=== PATIENT | female | born 1995 | race Caucasian/White ===

== ENCOUNTER 2020-06-02 06:56 | Outpatient (CLI) | payer OTHER ==
[~2020-06-02] VITALS: Ht 177.8 cm; Wt 96.3 kg
[2020-06-02 07:42] VITALS: BP 115/71
[2020-06-02] MEDS ORDERED: PREN1TAB60 PO (08:00)
== END 2020-06-02 08:40 | disposition home or self-care (01) ==
LOC: LDOP 06:56
PROVIDERS: ATTEND Student in an Organized Health Care Education/Training Program
DX: O42.913 Preterm premature rupture of membranes, unspecified as to length of time between rupture and onset of labor, third trimester (principal); Z3A.36 36 weeks gestation of pregnancy
CPT/HCPCS: 59025; 84112

== ENCOUNTER 2020-06-19 06:09 | Inpatient (IN) | payer OTHER ==
[~2020-06-19] VITALS: Ht 177.8 cm; Wt 100.0 kg
[~2020-06-19 06:09] MED LIST: PREN1TAB60 PO
[2020-06-19] MEDS ORDERED: D5%-LACTATED RINGERS 1,000 ML IV SCH (06:11)
[2020-06-19] MEDS ORDERED: OXYTOCIN 30U/ 0.9% NaCL 500ML 500 ML IV PRN (06:11)
[2020-06-19] MEDS ORDERED: OXYTOCIN 30U/ 0.9% NaCL 500ML 500 ML IV ONE (06:11)
[2020-06-19] MEDS ORDERED: NEWBORN KIT ONE (06:20)
[2020-06-19] MEDS ORDERED: FENTANYL PF 100 MCG/2ML IVPush PRN (06:30)
[2020-06-19] MEDS ORDERED: TERBUTALINE 1 MG/ML, 1ML SQ PRN (06:30)
[2020-06-19] MEDS ORDERED: MISOPROSTOL 25 MCG TABLET VG PRN (06:30)
[2020-06-19] MEDS ORDERED: PENICILLIN GK 5,000,000 UNITS in DEXTROSE 5% 100 ML IVPB ONE (06:30)
[2020-06-19] MEDS ORDERED: TERBUTALINE 1 MG/ML, 1ML IVPush PRN (06:30)
[2020-06-19] MEDS: LACTATED RINGERS 1,000 ML IV SCH ×5 (06:30→21:20)
[2020-06-19] MEDS ORDERED: ONDANSETRON 2MG/ML, 2ML IVPush PRN ×2 (06:30→20:00)
[2020-06-19] MEDS ORDERED: FENTANYL PF 100 MCG/2ML IV PRN ×2 (06:30→20:00)
[2020-06-19] MEDS ORDERED: CALCIUM CARBONATE 500 MG TAB.CHEW PO PRN (06:30)
[2020-06-19 06:44] LABS: BASOPHILS # (AUTO) 0.02 x10^3/uL (0-0.1); BASOPHILS % (AUTO) 0 % (0-1); EOSINOPHILS # (AUTO) 0.19 x10^3/uL (0-0.4); EOSINOPHILS % (AUTO) 2 % (1-7); LYMPHOCYTES % (AUTO) 17 % (22-44); MD NO; MEAN CORPUSCULAR HEMOGLOBIN 29.1 pg (27.0-34.8); MEAN CORPUSCULAR HGB CONC 32.8 g/dL (32.4-35.8); MEAN CORPUSCULAR VOLUME 88.7 fL (80-100); MEAN PLATELET VOLUME 10.2 fL (7.4-10.4); MONOCYTES # (AUTO) 0.64 x10^3/uL (0.2-0.8); MONOCYTES % (AUTO) 7 % (2-9); NEUTROPHILS # (AUTO) 6.32 x10^3/uL (1.8-6.8); NEUTROPHILS % (AUTO) 73 % (42-75); PLATELET COUNT 234 x10^3/uL (130-400); RED BLOOD COUNT 4.38 x10^6/uL (3.82-5.3); RED CELL DISTRIBUTION WIDTH 13.7 % (9.6-15.2)
[2020-06-19] MEDS ORDERED: LIDOCAINE 1%, 20ML ONE (06:45)
[2020-06-19] MEDS ORDERED: MISOPROSTOL 200 MCG TABLET ONE (06:46)
[2020-06-19] MEDS ORDERED: OXYTOCIN 30U/ 0.9% NaCL 500ML 500 ML ONE (06:46)
[2020-06-19] MEDS ORDERED: BUPR300T49 PO (07:13)
[2020-06-19] MEDS: PENICILLIN GK 2,500,000 UNITS in DEXTROSE 5% 100 ML IVPB SCH ×3 (11:33→19:45)
[2020-06-19] MEDS ORDERED: FENTANYL PF 100 MCG/2ML ONE ×3 (13:16→19:59)
[2020-06-19] MEDS ORDERED: FENTANYL/BUPIV./NS/PF 250 ML EPIDCONT SCH (14:09)
[2020-06-19] MEDS ORDERED: LACTATED RINGERS 1,000 ML IV SCH (14:09)
[2020-06-19] MEDS ORDERED: BUPIVACAINE 0.25% ONE (14:11)
[2020-06-19] MEDS ORDERED: FENTANYL/BUPIV./NS/PF 250 ML EPIDCONT ONE (14:11)
[2020-06-19] MEDS ORDERED: NALOXONE 0.4 MG/ML, 1ML IVPush PRN (14:30)
[2020-06-19] MEDS ORDERED: LACTATED RINGERS 1,000 ML IVBOLUS PRN (14:30)
[2020-06-19] MEDS ORDERED: EPHEDRINE 50 MG/ML, 1ML IVPush PRN ×2 (14:30→20:00)
[2020-06-19] MEDS ORDERED: METOCLOPRAMIDE 5 MG/ML, 2ML ONE (19:53)
[2020-06-19] MEDS ORDERED: DEXAMETHASONE 4 MG/ML, 1ML ONE (19:59)
[2020-06-19] MEDS ORDERED: ONDANSETRON 2MG/ML, 2ML ONE (19:59)
[2020-06-19] MEDS ORDERED: EPHEDRINE 50 MG/ML, 1ML ONE (19:59)
[2020-06-19] MEDS ORDERED: PROPOFOL 10 MG/ML, 20ML ONE (19:59)
[2020-06-19] MEDS ORDERED: CEFAZOLIN 1,000 MG ONE (19:59)
[2020-06-19] MEDS ORDERED: KETOROLAC 30 MG/1 ML ONE (19:59)
[2020-06-19] MEDS ORDERED: PHENYLEPHRINE 10 MG/ML ONE (19:59)
[2020-06-19] MEDS ORDERED: SUCCINYLCHOLINE 20 MG/ML, 10ML ONE (19:59)
[2020-06-19] MEDS ORDERED: OXYTOCIN 10 UNITS/ML, 1ML ONE (19:59)
[2020-06-19] MEDS ORDERED: HYDROmorphone 2 MG/ML, 1ML IVPush PRN (20:00)
[2020-06-19] MEDS ORDERED: hydrALAzine 20 MG/ML, 1ML IV PRN (20:00)
[2020-06-19] MEDS ORDERED: MEPERIDINE/PF 25MG/0.5ML IVPush PRN (20:00)
[2020-06-19] MEDS ORDERED: SODIUM CITRATE/CITRIC ACID 30 ML UDC PO ONE (20:00)
[2020-06-19] MEDS ORDERED: PROMETHAZINE 25 MG/ML, 1ML IV PRN (20:00)
[2020-06-19] MEDS ORDERED: ALBUTEROL/IPRATROPIUM 2.5MG/0.5MG, 3 ML NPPB PRN (20:00)
[2020-06-19] MEDS ORDERED: HYDROcodone/APAP 7.5-325MG/15ML UDC PO PRN (20:00)
[2020-06-19] MEDS ORDERED: LABETALOL 5MG/ML, 20ML IV PRN (20:00)
[2020-06-19] MEDS ORDERED: MIDAZOLAM 1 MG/ML, 2ML IV PRN (20:00)
[2020-06-19] MEDS ORDERED: OXYcodone 5 MG/5 ML ORAL.SOL UDC PO PRN (20:00)
[2020-06-19] MEDS ORDERED: morphine SULFATE/PF 0.5 MG/ML, 10ML ONE (20:43)
[2020-06-19] MEDS: OXYTOCIN 30U/ 0.9% NaCL 500ML 500 ML IV SCH (21:20)
[2020-06-19] MEDS ORDERED: METHYLERGONOVINE 0.2 MG/ML IM PRN (21:30)
[2020-06-19] MEDS ORDERED: ACETAMINOPHEN 325 MG TABLET PO PRN (21:30)
[2020-06-19] MEDS ORDERED: OXYcodone/APAP 5/325MG TABLET PO PRN (21:30)
[2020-06-19] MEDS ORDERED: CARBOPROST TROMETHAMINE 250 MCG/ML, 1ML IM PRN (21:30)
[2020-06-19] MEDS ORDERED: ONDANSETRON 2MG/ML, 2ML IV PRN (21:30)
[2020-06-19] MEDS ORDERED: METOCLOPRAMIDE 5 MG/ML, 2ML IV PRN (21:30)
[2020-06-19] MEDS ORDERED: MISOPROSTOL 200 MCG TABLET PO PRN (21:30)
[2020-06-19 23:35] VITALS: BP 123/77
[2020-06-20] MEDS ORDERED: OXYcodone/APAP 5/325MG TABLET PO PRN ×2 (01:00)
[2020-06-20] MEDS ORDERED: DIPHENHYDRAMINE 50 MG/ML, 1ML IVPush PRN (01:00)
[2020-06-20] MEDS ORDERED: ONDANSETRON 2MG/ML, 2ML IVPush PRN (01:00)
[2020-06-20] MEDS: KETOROLAC 30 MG/1 ML IV SCH ×3 (02:47→15:05)
[2020-06-20 04:20] VITALS: BP 95/53
[2020-06-20] MEDS: LACTATED RINGERS 1,000 ML IV SCH ×3 (05:20→13:20)
[2020-06-20 05:29] LABS: MEAN CORPUSCULAR HEMOGLOBIN 29.2 pg (27.0-34.8); MEAN CORPUSCULAR VOLUME 88.4 fL (80-100); MEAN PLATELET VOLUME 10.3 fL (7.4-10.4); PLATELET COUNT 197 x10^3/uL (130-400); RED BLOOD COUNT 3.55 x10^6/uL (3.82-5.3); RED CELL DISTRIBUTION WIDTH 14.1 % (9.6-15.2)
[2020-06-20 05:57] LABS: BASOPHILS % (AUTO) 0 % (0-1); EOSINOPHILS # (AUTO) 0.18 x10^3/uL (0-0.4); EOSINOPHILS % (AUTO) 1 % (1-7); LYMPHOCYTES # (AUTO) 0.76 x10^3/uL (1-3.4); LYMPHOCYTES % (AUTO) 4 % (22-44); MD SCAN; MONOCYTES # (AUTO) 0.79 x10^3/uL (0.2-0.8); MONOCYTES % (AUTO) 4 % (2-9); NEUTROPHILS % (AUTO) 91 % (42-75)
[2020-06-20] MEDS ORDERED: OXYTOCIN 30U/ 0.9% NaCL 500ML 500 ML IV PRN (06:11)
[2020-06-20] MEDS: OXYTOCIN 30U/ 0.9% NaCL 500ML 500 ML IV SCH (07:20)
[2020-06-20 07:50] VITALS: BP 101/63
[2020-06-20] MEDS: PRENATAL VIT/IRON/FA 1 EACH TABLET PO SCH (09:08)
[2020-06-20] MEDS: DOCUSATE 100 MG CAPSULE PO PRN ×2 (09:08→19:40)
[2020-06-20] MEDS: SIMETHICONE 80 MG CHEW TAB PO PRN ×3 (09:08→19:40)
[2020-06-20 12:00] VITALS: BP 116/75
[2020-06-20] MEDS: OXYcodone/APAP 5/325MG TABLET PO PRN ×2 (15:12→19:40)
[2020-06-20 16:30] VITALS: BP 113/74
[2020-06-20 20:00] VITALS: BP 123/87
[2020-06-20] MEDS ORDERED: IBUPROFEN 800 MG TABLET PO PRN (21:00)
[2020-06-21] MEDS: SIMETHICONE 80 MG CHEW TAB PO PRN (04:00)
[2020-06-21] MEDS: IBUPROFEN 600 MG TABLET PO PRN ×2 (04:00→10:21)
[2020-06-21] MEDS: OXYcodone/APAP 5/325MG TABLET PO PRN (04:00)
[2020-06-21] MEDS ORDERED: DOCU-131 PO (07:17)
[2020-06-21] MEDS ORDERED: OXYC-302 PO (07:17)
[2020-06-21] MEDS ORDERED: IBUP-1222 PO (07:17)
[2020-06-21] MEDS: DOCUSATE 100 MG CAPSULE PO PRN (10:21)
[2020-06-21] MEDS: PRENATAL VIT/IRON/FA 1 EACH TABLET PO SCH (10:21)
[2020-06-21] MEDS ORDERED: IBUPROFEN 800 MG TABLET PO PRN (21:30)
[2020-06-21] MEDS ORDERED: IBUPROFEN 600 MG TABLET PO PRN (21:30)
== END 2020-06-21 11:25 | disposition home or self-care (01) | DRG 788 ==
LOC: LDIP 06:09 → 2NW 23:21
PROVIDERS: ADMIT Student in an Organized Health Care Education/Training Program; ATTEND Student in an Organized Health Care Education/Training Program
PROC: 10D00Z1 Extraction of Products of Conception, Low, Open Approach (ICD-10-PCS; principal; 2020-06-19)
DX: O99.824 Streptococcus B carrier state complicating childbirth (principal); Z3A.39 39 weeks gestation of pregnancy; O36.63X0 Maternal care for excessive fetal growth, third trimester, not applicable or unspecified; O62.1 Secondary uterine inertia; Z37.0 Single live birth; Z80.3 Family history of malignant neoplasm of breast; Z82.49 Family history of ischemic heart disease and other diseases of the circulatory system; Z83.3 Family history of diabetes mellitus; O32.4XX0 Maternal care for high head at term, not applicable or unspecified; Z20.828 Contact with and (suspected) exposure to other viral communicable diseases
CPT/HCPCS: 36415; 82962; 85025; 86592; 86850; 86900; 87635; G0378; J0690; J1100; J1885; J2274; J2405; J2540; J2704; J3010; J3490; J0330; J1200; J2370; J2590; J7120